=== PATIENT | male | born 1970 | race Caucasian/White ===

== ENCOUNTER 2016-11-06 11:51 | Inpatient (IN) | payer OTHER ==
[~2016-11-06] VITALS: Ht 172.7 cm; Wt 73.3 kg
[2016-11-06 12:39] LABS: BASOPHIL COUNT 0.1 K/uL (0-0.1); EOSINOPHIL (%) 1.8 % (0-5); EOSINOPHIL COUNT 0.2 K/uL (0-0.3); HEMATOCRIT 41.9 % (38.0-50.0); IMMATURE GRANULOCYTE (%) 0.5 % (0.0-0.7); IMMATURE GRANULOCYTE COUNT 0.1 K/uL; INSTRUMENT ABS NEUTROPHIL CT 7.3 K/uL; LYMPHOCYTE COUNT 1.9 K/uL (1.0-2.8); MCH 30.4 PG (29.0-34.0); MCHC 34.4 G/DL (30.0-36.0); MCV 88.6 FL (86-99); MEAN PLAT.VOLUME 10.8 uM^3 (9.0-12.4); MONOCYTE (%) 9.3 % (3-12); NEUTROPHIL (%) 69.6 % (45-76); NEUTROPHIL COUNT 7.3 K/uL (1.8-6.4); PLATELET COUNT 202 K/uL (156-360); RBC DIS.WIDTH-CV 16.3 % (11.8-14.6); RBC DIS.WIDTH-SD 52.6 % (39-53); RED BLOOD COUNT 4.73 M/uL (4.00-5.50); WHITE BLOOD COUNT 10.5 K/uL (4.1-10.2)
[2016-11-06 12:46] LABS: CHLORIDE 110 mEq/L (99-109); POTASSIUM 3.7 mEq/L (3.7-5.4); SODIUM 141 mEq/L (136-147)
[2016-11-06 12:48] LABS: GLUCOSE 84 mg/dL (70-99)
[2016-11-06 12:49] LABS: ANION GAP 9 MEQ/L (2-14)
[2016-11-06 12:50] LABS: TOTAL BILIRUBIN 0.3 mg/dL (0.0-1.0)
[2016-11-06 12:52] LABS: ALKALINE PHOSPHATASE 89 IU/L (3-129)
[2016-11-06 12:53] LABS: GFR ESTIMATE (CALCULATED) > 59 mL/min/; UREA NITROGEN (BUN) 8 mg/dL (9-23)
[2016-11-06 12:55] LABS: LIPASE 28 U/L (1.0-51.0)
[2016-11-06] MEDS ORDERED: DELZICOL400 M1 PO ×2 (13:13→15:17)
[2016-11-06 13:38] LABS: ADD MIUA? YES; BILIRUBIN NEGATIVE; BLOOD SMALL; COLOR YELLOW ((YELLOW)); GLUCOSE (STRIP) NEGATIVE; KETONES NEGATIVE; LEUKOCYTES NEGATIVE; NITRITE NEGATIVE; PROTEIN (STRIP) NEGATIVE; SPECIFIC GRAVITY 1.015 (1.000-1.030); UROBILINOGEN 0.2 MG/DL (0.2-1.0)
[2016-11-06 13:43] LABS: BACTERIA NONE SEEN /HPF; CALCIUM OXALATE CRYSTALS 3+ /HPF; EPITHELIAL CELLS NONE SEEN /HPF; HYALINE CASTS 0-5 /LPF; MUCUS TRACE /LPF; UCUL ADDED? NO; WHITE BLOOD CELLS 0-5 /HPF (0-5)
[2016-11-06 17:05] VITALS: BP 138/61
[2016-11-06 20:00] VITALS: BP 135/85
[2016-11-06 23:10] LABS: C DIFF TOXIN NEGATIVE (NEGATIVE)
[2016-11-06 23:14] LABS: PROBE CHECK PASS; SPECIMEN PROCESSING CONTROL PASS
[2016-11-07 01:03] VITALS: BP 137/79
[2016-11-07 03:59] VITALS: BP 127/72
[2016-11-07 06:08] LABS: ANION GAP 8 MEQ/L (2-14); CHLORIDE 111 MEQ/L (99-109); GFR ESTIMATE (CALCULATED) > 59 mL/min/; GLUCOSE 91 mg/dL (70-99); POTASSIUM 3.6 MEQ/L (3.7-5.4); SAMPLE HEMOLYSIS CHECK 0; SAMPLE ICTERIC CHECK 0; SAMPLE LIPEMIA CHECK 0; SODIUM 143 MEQ/L (136-147); UREA NITROGEN (BUN) 7 mg/dL (9-23)
[2016-11-07 06:20] LABS: MCH 30.4 PG (29.0-34.0); MCV 89.3 FL (86-99); MEAN PLAT.VOLUME 10.8 uM^3 (9.0-12.4); PLATELET COUNT 159 K/uL (156-360); RBC DIS.WIDTH-CV 16.5 % (11.8-14.6); RBC DIS.WIDTH-SD 54.1 % (39-53); RED BLOOD COUNT 3.92 M/uL (4.00-5.50); WHITE BLOOD COUNT 5.9 K/uL (4.1-10.2)
[2016-11-07 07:25] VITALS: BP 133/79
[2016-11-07 12:13] VITALS: BP 159/71
[2016-11-07 19:25] VITALS: BP 163/84
[2016-11-08 00:36] VITALS: BP 105/57
[2016-11-08 04:35] VITALS: BP 113/63
[2016-11-08 05:22] LABS: HEMATOCRIT 38.5 % (38.0-50.0); MCH 30.1 PG (29.0-34.0); MCV 88.5 FL (86-99); MEAN PLAT.VOLUME 10.3 uM^3 (9.0-12.4); PLATELET COUNT 190 K/uL (156-360); RBC DIS.WIDTH-CV 16.5 % (11.8-14.6); RED BLOOD COUNT 4.35 M/uL (4.00-5.50); WHITE BLOOD COUNT 8.5 K/uL (4.1-10.2)
[2016-11-08 06:15] LABS: ANION GAP 8 MEQ/L (2-14); CHLORIDE 110 MEQ/L (99-109); GFR ESTIMATE (CALCULATED) > 59 mL/min/; SAMPLE HEMOLYSIS CHECK 0; SAMPLE ICTERIC CHECK 0; SAMPLE LIPEMIA CHECK 0; SODIUM 141 MEQ/L (136-147); UREA NITROGEN (BUN) 5 mg/dL (9-23)
[2016-11-08 06:17] LABS: GLUCOSE 138 mg/dL (70-99); POTASSIUM 4.8 MEQ/L (3.7-5.4)
[2016-11-08 07:00] VITALS: BP 146/88
[2016-11-08 11:14] VITALS: BP 132/66
[2016-11-08 15:50] VITALS: BP 126/66
[2016-11-08 19:49] VITALS: BP 147/73
[2016-11-09] VITALS: BP 104/56
[2016-11-09 02:58] VITALS: BP 100/44
[2016-11-09 06:08] LABS: EOSINOPHIL (%) 0.3 % (0-5); HEMATOCRIT 33.3 % (38.0-50.0); IMMATURE GRANULOCYTE (%) 0.5 % (0.0-0.7); IMMATURE GRANULOCYTE COUNT 0.1 K/uL; INSTRUMENT ABS NEUTROPHIL CT 7.9 K/uL; LYMPHOCYTE COUNT 1.9 K/uL (1.0-2.8); MCH 31.3 PG (29.0-34.0); MCHC 34.8 G/DL (30.0-36.0); MCV 89.8 FL (86-99); MONOCYTE (%) 10.9 % (3-12); MONOCYTE COUNT 1.2 K/uL (0-0.8); NEUTROPHIL (%) 70.9 % (45-76); NEUTROPHIL COUNT 7.9 K/uL (1.8-6.4); PLATELET COUNT 171 K/uL (156-360); RBC DIS.WIDTH-CV 17.4 % (11.8-14.6); RBC DIS.WIDTH-SD 57.3 % (39-53); RED BLOOD COUNT 3.71 M/uL (4.00-5.50); WHITE BLOOD COUNT 11.1 K/uL (4.1-10.2)
[2016-11-09 06:38] LABS: ANION GAP 5 MEQ/L (2-14); CHLORIDE 110 MEQ/L (99-109); GFR ESTIMATE (CALCULATED) > 59 mL/min/; GLUCOSE 126 mg/dL (70-99); POTASSIUM 4.2 MEQ/L (3.7-5.4); SAMPLE HEMOLYSIS CHECK 2; SAMPLE ICTERIC CHECK 0; SAMPLE LIPEMIA CHECK 0; SODIUM 142 MEQ/L (136-147); UREA NITROGEN (BUN) 9 mg/dL (9-23)
[2016-11-09 08:00] VITALS: BP 125/73
[2016-11-09 13:08] VITALS: BP 143/76
[2016-11-09 16:00] VITALS: BP 119/70
[2016-11-09 19:00] VITALS: BP 137/80
[2016-11-10] VITALS (7 sets, daily range): BP systolic 115–158; BP diastolic 67–80
[2016-11-10 05:33] LABS: MCH 31.2 PG (29.0-34.0); MCHC 34.7 G/DL (30.0-36.0); MCV 89.9 FL (86-99); MEAN PLAT.VOLUME 11.2 uM^3 (9.0-12.4); PLATELET COUNT 184 K/uL (156-360); RBC DIS.WIDTH-CV 17.4 % (11.8-14.6); RBC DIS.WIDTH-SD 57.6 % (39-53); RED BLOOD COUNT 3.78 M/uL (4.00-5.50); WHITE BLOOD COUNT 12.4 K/uL (4.1-10.2)
[2016-11-10 05:59] LABS: ANION GAP 9 MEQ/L (2-14); CHLORIDE 106 MEQ/L (99-109); GFR ESTIMATE (CALCULATED) > 59 mL/min/; GLUCOSE 162 mg/dL (70-99); SAMPLE HEMOLYSIS CHECK 0; SAMPLE ICTERIC CHECK 0; SAMPLE LIPEMIA CHECK 0; SODIUM 141 MEQ/L (136-147); UREA NITROGEN (BUN) 14 mg/dL (9-23)
[2016-11-10 06:00] LABS: IRON 75 MCG/DL (35-150)
[2016-11-10 08:33] LABS: FERRITIN 43 NG/ML (22-322)
[2016-11-11 03:44] VITALS: BP 131/60; BP 131/90
[2016-11-11 06:33] LABS: EOSINOPHIL (%) 0.4 % (0-5); HEMATOCRIT 34.4 % (38.0-50.0); IMMATURE GRANULOCYTE (%) 1.7 % (0.0-0.7); IMMATURE GRANULOCYTE COUNT 0.2 K/uL; INSTRUMENT ABS NEUTROPHIL CT 6.5 K/uL; LYMPHOCYTE COUNT 2.5 K/uL (1.0-2.8); MCH 30.7 PG (29.0-34.0); MCV 90.3 FL (86-99); MEAN PLAT.VOLUME 11.4 uM^3 (9.0-12.4); MONOCYTE COUNT 1.3 K/uL (0-0.8); NEUTROPHIL (%) 61.7 % (45-76); NEUTROPHIL COUNT 6.5 K/uL (1.8-6.4); PLATELET COUNT 173 K/uL (156-360); RBC DIS.WIDTH-CV 17.2 % (11.8-14.6); RBC DIS.WIDTH-SD 57.4 % (39-53); RED BLOOD COUNT 3.81 M/uL (4.00-5.50); WHITE BLOOD COUNT 10.6 K/uL (4.1-10.2)
[2016-11-11 06:50] LABS: CHLORIDE 107 MEQ/L (99-109); GFR ESTIMATE (CALCULATED) > 59 mL/min/; POTASSIUM 3.6 MEQ/L (3.7-5.4); SODIUM 142 MEQ/L (136-147); UREA NITROGEN (BUN) 10 mg/dL (9-23)
[2016-11-11 06:51] LABS: ALKALINE PHOSPHATASE 54 IU/L (3-129); ANION GAP 8 MEQ/L (2-14); GLUCOSE 75 mg/dL (70-99); SAMPLE HEMOLYSIS CHECK 0; SAMPLE ICTERIC CHECK 0; SAMPLE LIPEMIA CHECK 0; TOTAL BILIRUBIN 0.2 MG/DL (0.0-1.0)
[2016-11-11 08:57] VITALS: BP 166/83
[2016-11-11 16:00] VITALS: BP 134/80
[2016-11-11 20:00] VITALS: BP 161/82
[2016-11-12 00:45] VITALS: BP 129/62
[2016-11-12 06:35] LABS: EOSINOPHIL (%) 0.2 % (0-5); HEMATOCRIT 35.8 % (38.0-50.0); IMMATURE GRANULOCYTE (%) 1.2 % (0.0-0.7); IMMATURE GRANULOCYTE COUNT 0.1 K/uL; INSTRUMENT ABS NEUTROPHIL CT 4.9 K/uL; MCH 30.5 PG (29.0-34.0); MCHC 33.5 G/DL (30.0-36.0); MCV 90.9 FL (86-99); MEAN PLAT.VOLUME 11.5 uM^3 (9.0-12.4); MONOCYTE COUNT 1.2 K/uL (0-0.8); NEUTROPHIL (%) 59.3 % (45-76); NEUTROPHIL COUNT 4.9 K/uL (1.8-6.4); PLATELET COUNT 160 K/uL (156-360); RBC DIS.WIDTH-CV 17.4 % (11.8-14.6); RBC DIS.WIDTH-SD 57.8 % (39-53); RED BLOOD COUNT 3.94 M/uL (4.00-5.50); WHITE BLOOD COUNT 8.2 K/uL (4.1-10.2)
[2016-11-12 07:23] LABS: ALKALINE PHOSPHATASE 61 IU/L (3-129); ANION GAP 9 MEQ/L (2-14); CHLORIDE 108 MEQ/L (99-109); GFR ESTIMATE (CALCULATED) > 59 mL/min/; GLUCOSE 82 mg/dL (70-99); POTASSIUM 4.1 MEQ/L (3.7-5.4); SAMPLE HEMOLYSIS CHECK 0; SAMPLE ICTERIC CHECK 0; SAMPLE LIPEMIA CHECK 0; SODIUM 144 MEQ/L (136-147); UREA NITROGEN (BUN) 13 mg/dL (9-23)
[2016-11-12 07:25] LABS: TOTAL BILIRUBIN 0.3 MG/DL (0.0-1.0)
[2016-11-12 08:35] VITALS: BP 161/79
[2016-11-12 16:12] VITALS: BP 132/76
[2016-11-12 22:37] VITALS: BP 133/47
[2016-11-13 07:10] VITALS: BP 139/72
[2016-11-13 07:22] LABS: ANION GAP 10 MEQ/L (2-14); CHLORIDE 105 MEQ/L (99-109); GFR ESTIMATE (CALCULATED) > 59 mL/min/; GLUCOSE 78 mg/dL (70-99); SAMPLE HEMOLYSIS CHECK 0; SAMPLE ICTERIC CHECK 0; SAMPLE LIPEMIA CHECK 0; SODIUM 141 MEQ/L (136-147); UREA NITROGEN (BUN) 12 mg/dL (9-23)
[2016-11-13] MEDS ORDERED: METRONIDAZOLE500 MG PO (10:23)
[2016-11-13] MEDS ORDERED: DELZICOL400 M1 PO (10:23)
[2016-11-13] MEDS ORDERED: PREDNISONE10 MG PO (10:23)
[2016-11-13] MEDS ORDERED: PANTOPRAZOLE SO40 MG PO (10:23)
[2016-11-13] MEDS ORDERED: ONDANSETRON ODT4 MG PO (10:23)
[2016-11-13] MEDS ORDERED: ENDOCET 5-3251 EACH PO (10:23)
[2016-11-13] MEDS ORDERED: RAYOS5 MG PO (15:54)
== END 2016-11-13 17:57 | disposition home or self-care (01) | DRG 387 ==
LOC: EME 11:51 → 5WEST 15:10 → EDOF 15:10 → 5WEST 16:51 → 5EAST 11-08 14:11 → 5WEST 11-08 14:11 → 5EAST 11-10 22:23
PROVIDERS: Emergency Medicine; Internal Medicine; Physician Assistant; Specialist
PROC: 0DB58ZX Excision of Esophagus, Via Natural or Artificial Opening Endoscopic, Diagnostic (ICD-10-PCS; principal; 2016-11-06)
PROC: 0DB68ZX Excision of Stomach, Via Natural or Artificial Opening Endoscopic, Diagnostic (ICD-10-PCS; 2016-11-08)
PROC: 0DBL8ZX Excision of Transverse Colon, Via Natural or Artificial Opening Endoscopic, Diagnostic (ICD-10-PCS; 2016-11-11)
PROC: 0DBM8ZX Excision of Descending Colon, Via Natural or Artificial Opening Endoscopic, Diagnostic (ICD-10-PCS; 2016-11-11)
PROC: 0DBP8ZX Excision of Rectum, Via Natural or Artificial Opening Endoscopic, Diagnostic (ICD-10-PCS; 2016-11-11)
PROC: 0DBN8ZX Excision of Sigmoid Colon, Via Natural or Artificial Opening Endoscopic, Diagnostic (ICD-10-PCS; 2016-11-11)
DX: K50.10 Crohn's disease of large intestine without complications (principal); E87.6 Hypokalemia; K52.9 Noninfective gastroenteritis and colitis, unspecified; K22.70 Barrett's esophagus without dysplasia; K29.80 Duodenitis without bleeding; K29.70 Gastritis, unspecified, without bleeding; K40.20 Bilateral inguinal hernia, without obstruction or gangrene, not specified as recurrent; R32 Unspecified urinary incontinence; F17.210 Nicotine dependence, cigarettes, uncomplicated; K76.0 Fatty (change of) liver, not elsewhere classified; K64.9 Unspecified hemorrhoids; K44.9 Diaphragmatic hernia without obstruction or gangrene; Z80.8 Family history of malignant neoplasm of other organs or systems; Z80.0 Family history of malignant neoplasm of digestive organs; Z59.0 Homelessness
CPT/HCPCS: 74177; 74250; 80048; 80053; 81003; 82607; 82728; 83540; 83690; 84466; 85025; 85027; 86340 90; 87177; 87493; 87506; 88305; 88342 TC; 99281; 99285; G0378; J0744; J1644; J2270; J2405; J3420; J3480; J7030; J7512; S0030

== ENCOUNTER 2016-11-17 14:57 | Observation (INO) | payer OTHER ==
[~2016-11-17] VITALS: Ht 172.7 cm; Wt 73.1 kg
[~2016-11-17 14:57] MED LIST: DELZICOL400 M1 PO; ENDOCET 5-3251 EACH PO; METRONIDAZOLE500 MG PO; ONDANSETRON ODT4 MG PO; PANTOPRAZOLE SO40 MG PO; PREDNISONE10 MG PO; RAYOS5 MG PO
[2016-11-17 16:03] LABS: HEMATOCRIT 44.8 % (38.0-50.0); MCH 30.9 PG (29.0-34.0); MCHC 33.7 G/DL (30.0-36.0); MCV 91.6 FL (86-99); MEAN PLAT.VOLUME 10.6 uM^3 (9.0-12.4); PLATELET COUNT 239 K/uL (156-360); RBC DIS.WIDTH-CV 18.5 % (11.8-14.6); RBC DIS.WIDTH-SD 62.3 % (39-53); RED BLOOD COUNT 4.89 M/uL (4.00-5.50); WHITE BLOOD COUNT 15.7 K/uL (4.1-10.2)
[2016-11-17 16:12] LABS: CHLORIDE 105 mEq/L (99-109); POTASSIUM 4.7 mEq/L (3.7-5.4); SODIUM 138 mEq/L (136-147)
[2016-11-17 16:14] LABS: GLUCOSE 115 mg/dL (70-99)
[2016-11-17 16:15] LABS: ANION GAP 13 MEQ/L (2-14)
[2016-11-17 16:18] LABS: GFR ESTIMATE (CALCULATED) > 59 mL/min/
[2016-11-17 16:19] LABS: UREA NITROGEN (BUN) 16 mg/dL (9-23)
[2016-11-17 16:21] LABS: TROP-I INTERPRETATION NEGATIVE; TROPONIN-I < 0.01 ng/mL (0.0-0.30)
[2016-11-17 20:57] VITALS: BP 141/81
[2016-11-17 21:18] LABS: D-DIMER ELISA 0.27 mg/L FEU (< 0.57)
[2016-11-17 21:54] LABS: ALKALINE PHOSPHATASE 66 IU/L (3-129); CREATINE KINASE 15 IU/L (1-294); DIRECT BILIRUBIN 0.2 mg/dL (0.0-0.3); MAGNESIUM 2.2 mg/dl (1.3-2.7); TOTAL CK 15 IU/L (1-294)
[2016-11-17 21:55] LABS: TOTAL BILIRUBIN 0.9 MG/DL (0.0-1.0)
[2016-11-17 22:13] LABS: CK-MB 0.5 ng/mL (0.0-4.9)
[2016-11-17 22:42] LABS: LIPASE 25 U/L (1.0-51.0)
[2016-11-18] VITALS: BP 115/71
[2016-11-18 01:32] LABS: TROP-I INTERPRETATION NEGATIVE; TROPONIN-I < 0.01 ng/mL (0.0-0.30)
[2016-11-18 05:57] LABS: TROP-I INTERPRETATION NEGATIVE; TROPONIN-I < 0.01 ng/mL (0.0-0.30)
[2016-11-18 06:07] LABS: ANION GAP 9 MEQ/L (2-14); CHLORIDE 106 MEQ/L (99-109); GFR ESTIMATE (CALCULATED) > 59 mL/min/; GLUCOSE 129 mg/dL (70-99); SAMPLE HEMOLYSIS CHECK 0; SAMPLE ICTERIC CHECK 0; SAMPLE LIPEMIA CHECK 0; SODIUM 140 MEQ/L (136-147); UREA NITROGEN (BUN) 16 mg/dL (9-23)
[2016-11-18 06:09] LABS: HEMATOCRIT 38.3 % (38.0-50.0); MCH 30.7 PG (29.0-34.0); MCHC 32.9 G/DL (30.0-36.0); MCV 93.4 FL (86-99); MEAN PLAT.VOLUME 10.7 uM^3 (9.0-12.4); PLATELET COUNT 208 K/uL (156-360); RBC DIS.WIDTH-CV 18.6 % (11.8-14.6); RBC DIS.WIDTH-SD 64.1 % (39-53); WHITE BLOOD COUNT 8.3 K/uL (4.1-10.2)
[2016-11-18 07:29] VITALS: BP 138/90
[2016-11-18 08:30] VITALS: BP 138/90
[2016-11-18] MEDS ORDERED: TRAMADOL HCL50 MG PO (09:08)
== END 2016-11-18 11:22 | disposition home or self-care (01) ==
LOC: EME 14:57 → EDOF 19:46 → 5WEST 19:46 → EDOF 19:46 → 5WEST 20:33
PROVIDERS: Emergency Medicine; Hospitalist
DX: R07.9 Chest pain, unspecified (principal); R42 Dizziness and giddiness; Z82.49 Family history of ischemic heart disease and other diseases of the circulatory system; K50.90 Crohn's disease, unspecified, without complications; R06.02 Shortness of breath; R53.1 Weakness; Z90.49 Acquired absence of other specified parts of digestive tract; G89.29 Other chronic pain; R10.9 Unspecified abdominal pain; Z87.820 Personal history of traumatic brain injury; M79.1 Myalgia; Z79.82 Long term (current) use of aspirin
CPT/HCPCS: 71020; 74176; 80048; 80076; 82550 91; 82553; 83690; 83735; 83880; 84100; 84484; 85027; 85379; 93005; 99281; 99285; G0378; J1650; J1885; J2270; J2405; J7120